=== PATIENT | female | born 1975 | race American Indian/Alaskan Native ===

== ENCOUNTER 2019-03-27 19:49 | Emergency (ER) | payer BC ==
--- NOTE | 2019-03-27 21:13 | Emergency Department Report ---
Minor Respiratory - HPI Chief Complaint: Upper Respiratory Infection Stated Complaint: FEVER,CHEST PAIN SORE THROAT WITH COUGH Time Seen by Provider: 03/27/19 20:55 Duration: 2 Days Minor Respiratory: Yes Sore Throat, Yes Cough, Yes Fever (tmax 101.8) Other History: 43-year-old female with a past medical history diabetes hypertension and obesity with PCO comes in for fever cough chest pain with cough bodyaches sore throat 2 days. Patient states she last took Tylenol at 4 PM. Patient complains of body aches sweats. Patient reports she is taking TheraFlu and Tylenol. ED Review of Systems ROS: Stated complaint: FEVER,CHEST PAIN SORE THROAT WITH COUGH Other details as noted in HPI Comment: All other systems reviewed and negative ED Past Medical Hx - Past Medical History Previous Medical History?: Yes Hx Hypertension: Yes Hx Diabetes: Yes Additional medical history: PCOS - Surgical History Past Surgical History?: Yes Additional Surgical History: Carpel tunnel B/L hands, C-sec - Social History Smoking Status: Former Smoker Substance Use Type: None - Medications Home Medications: Home Medications Medication Instructions Recorded Confirmed Last Taken Type Benzonatate [Tessalon Perles] 100 mg PO Q8HR #15 capsule 03/27/19 Unknown Rx Minor Respiratory Exam - Exam General: Vital signs noted. No distress. Alert and acting appropriately. Neurologic: Alert and oriented, no deficits. Musculoskeletal: Unremarkable. ED Medical Decision Making - Radiology Data Radiology results: report reviewed - Medical Decision Making 43-year-old female with a past medical history diabetes hypertension and obesity with PCO comes in for fever cough chest pain with cough bodyaches sore throat 2 days. Patient states she last took Tylenol at 4 PM. Patient complains of body aches sweats. Patient reports she is taking TheraFlu and Tylenol. Patient reports she did get her flu vaccination this year Recheck vitals at this provider [place] 99.1 heart rate 9798% on room air. Discussed with patient that she needs to continue with Tylenol and ibuprofen as needed for fever and body aches. Patient and take [id number] place patient on Tessalon Perles. Patient is to follow-up with her primary care provider if her symptoms persist or gets worse. Critical care attestation.: If time is entered above; I have spent that time in minutes in the direct care of this critically ill patient, excluding procedure time. ED Disposition Clinical Impression: Viral syndrome Disposition: DC-01 TO HOME OR SELFCARE Is pt being admited?: No Does the pt Need Aspirin: No Condition: Stable Instructions: Viral Syndrome (ED) Additional Instructions: Please take Tessalon Perles, ibuprofen and Tylenol for fever and body aches. Follow-up with her primary care provider if his symptoms persist or gets worse. Prescriptions: Benzonatate [Tessalon Perles] 100 mg PO Q8HR #15 capsule Referrals: PRIMARY CARE, [Primary Care Provider] - 3-5 Days Forms: Work/School Release Form(ED)
[2019-03-27 21:53] VITALS: BP 146/100
== END 2019-03-27 21:35 | disposition home or self-care (01) ==
LOC: ED 19:49
DX: B34.9 Viral infection, unspecified (principal); I10 Essential (primary) hypertension; E11.9 Type 2 diabetes mellitus without complications; Z87.891 Personal history of nicotine dependence; Z79.899 Other long term (current) drug therapy; Z88.8 Allergy status to other drugs, medicaments and biological substances